=== PATIENT | male | born 1955 | race Caucasian/White ===

== ENCOUNTER 2024-01-02 15:00 | Outpatient (RCR) | payer MEDICARE, SELFPAY ==
[2024-01-02 15:10] LABS: % Basophils 0.6 % (0-2); % Eosinophils 5.6 % (0-6); % Immature Granulocytes 0.1 % (0-0.5); % Lymphocytes 22.2 % (20.5-51.1); % Monocytes 10.8 % (1.7-9.3); % Neutrophils 60.7 % (42.2-75.2); Absolute Basophils 0.1 10^3/uL (0-0.2); Absolute Eosinophils 0.5 10^3/uL (0-0.7); Absolute Lymphocytes 2.1 10^3/uL (1.2-3.4); Absolute Neutrophils 5.7 10^3/uL (1.4-6.5); Hematocrit 45.4 % (39.0-52.0); Hemoglobin 15.9 g/dL (13.0-18.0); Mean Corpuscular Hgb 31.2 pg (27.0-31.0); Mean Platelet Volume 9.6 fL (7.4-10.4); Platelet Count 201 10^3/uL (130-400); Red Cell Dist. Width 12.7 % (11.5-14.5); White Blood Cell Count 9.5 10^3/uL (4.8-10.8)
[2024-01-02 15:19] VITALS: BP 124/76
[2024-01-02 15:47] VITALS: BP 123/86
[2024-01-02 15:53] VITALS: BP 108/74
== END 2024-01-03 11:12 | disposition home or self-care (01) ==
LOC: OID 15:00
PROVIDERS: ATTENDING PHYSICIAN Family Medicine; OTHER PHYSICIAN Dermatology
DX: E83.110 Hereditary hemochromatosis (principal)
CPT/HCPCS: 36415; 85025; 99195

== ENCOUNTER → 2024-02-14 06:28 | Day surgery (SDC) | payer MEDICARE, SELFPAY | LOC: GI 06:28 | PROVIDERS: ATTENDING PHYSICIAN Internal Medicine Gastroenterology; FAMILY PHYSICIAN Family Medicine | DX: Z12.11 Encounter for screening for malignant neoplasm of colon (principal); Z86.010 Personal history of colon polyps; K64.8 Other hemorrhoids; K57.30 Diverticulosis of large intestine without perforation or abscess without bleeding; D12.2 Benign neoplasm of ascending colon | CPT/HCPCS: 45385; 88305 ==

== ENCOUNTER 2024-03-05 14:17 | Outpatient (RCR) | payer MEDICARE, SELFPAY ==
[2024-03-05 14:27] LABS: % Basophils 0.9 % (0-2); % Eosinophils 6.7 % (0-6); % Immature Granulocytes 0.1 % (0-0.5); % Lymphocytes 19.1 % (20.5-51.1); % Monocytes 10.5 % (1.7-9.3); % Neutrophils 62.7 % (42.2-75.2); Absolute Basophils 0.1 10^3/uL (0-0.2); Absolute Eosinophils 0.5 10^3/uL (0-0.7); Absolute Lymphocytes 1.5 10^3/uL (1.2-3.4); Absolute Monocytes 0.8 10^3/uL (0.1-0.6); Absolute Neutrophils 4.8 10^3/uL (1.4-6.5); Hematocrit 43.6 % (39.0-52.0); Hemoglobin 15.2 g/dL (13.0-18.0); Mean Corp Hgb Conc. 34.9 g/dL (33.0-37.0); Mean Corpuscular Hgb 30.9 pg (27.0-31.0); Mean Corpuscular Volume 88.6 fL (80.0-94.0); Mean Platelet Volume 9.7 fL (7.4-10.4); Platelet Count 173 10^3/uL (130-400); Red Blood Cell Count 4.92 10^6/uL (4.70-6.10); White Blood Cell Count 7.7 10^3/uL (4.8-10.8)
[2024-03-05 14:47] VITALS: BP 152/83
[2024-03-05 14:55] VITALS: BP 151/85
[2024-03-05 15:00] VITALS: BP 136/87
== END 2024-03-06 10:03 | disposition home or self-care (01) ==
LOC: OID 14:17
PROVIDERS: ATTENDING PHYSICIAN Family Medicine; OTHER PHYSICIAN Dermatology
DX: E83.110 Hereditary hemochromatosis (principal); R74.8 Abnormal levels of other serum enzymes; I10 Essential (primary) hypertension; E11.9 Type 2 diabetes mellitus without complications; Z12.5 Encounter for screening for malignant neoplasm of prostate
CPT/HCPCS: 36415; 85025; 99195

== ENCOUNTER 2024-04-30 15:00 | Outpatient (RCR) | payer MEDICARE, SELFPAY ==
[2024-04-30 15:08] LABS: % Basophils 0.6 % (0-2); % Eosinophils 3.7 % (0-6); % Immature Granulocytes 0.1 % (0-0.5); % Lymphocytes 19.5 % (20.5-51.1); % Monocytes 9.5 % (1.7-9.3); % Neutrophils 66.6 % (42.2-75.2); Absolute Basophils 0.1 10^3/uL (0-0.2); Absolute Eosinophils 0.3 10^3/uL (0-0.7); Absolute Lymphocytes 1.7 10^3/uL (1.2-3.4); Absolute Monocytes 0.8 10^3/uL (0.1-0.6); Absolute Neutrophils 5.9 10^3/uL (1.4-6.5); Hematocrit 44.8 % (39.0-52.0); Hemoglobin 15.6 g/dL (13.0-18.0); Mean Corp Hgb Conc. 34.8 g/dL (33.0-37.0); Mean Corpuscular Hgb 30.8 pg (27.0-31.0); Mean Corpuscular Volume 88.4 fL (80.0-94.0); Mean Platelet Volume 9.3 fL (7.4-10.4); Platelet Count 207 10^3/uL (130-400); Red Blood Cell Count 5.07 10^6/uL (4.70-6.10); Red Cell Dist. Width 13.4 % (11.5-14.5); White Blood Cell Count 8.8 10^3/uL (4.8-10.8)
[2024-04-30 15:29] VITALS: BP 133/70
[2024-04-30 16:14] VITALS: BP 119/71
[2024-04-30 16:17] VITALS: BP 108/73
== END 2024-05-01 09:27 | disposition home or self-care (01) ==
LOC: OID 15:00
PROVIDERS: ATTENDING PHYSICIAN Family Medicine; OTHER PHYSICIAN Dermatology
DX: E83.110 Hereditary hemochromatosis (principal); R74.8 Abnormal levels of other serum enzymes
CPT/HCPCS: 36415; 85025; 99195

== ENCOUNTER 2024-06-25 14:59 | Outpatient (RCR) | payer MEDICARE, SELFPAY ==
[2024-06-24 15:12] LABS: Hematocrit 45.3 % (39.0-52.0)
[2024-06-24 15:55] LABS: Iron 73 ug/dl (49-181)
[2024-06-24 16:05] LABS: Percent Saturation 21 % (20-50); Total Iron Binding Capacity 339 ug/dl (261-462)
[2024-06-24 16:53] LABS: Ferritin 13.5 ng/ml (17.9-464.0)
[2024-06-25 15:15] VITALS: BP 126/73
[2024-06-25 15:47] VITALS: BP 138/66
[2024-06-25 15:52] VITALS: BP 138/66
== END 2024-06-26 08:45 | disposition home or self-care (01) ==
LOC: OID 14:59
PROVIDERS: ATTENDING PHYSICIAN Family Medicine; OTHER PHYSICIAN Dermatology
DX: E83.110 Hereditary hemochromatosis (principal); R74.8 Abnormal levels of other serum enzymes; I10 Essential (primary) hypertension; E11.9 Type 2 diabetes mellitus without complications; Z12.5 Encounter for screening for malignant neoplasm of prostate
CPT/HCPCS: 36415; 82728; 83540; 83550; 85014; 85018; 99195

== ENCOUNTER 2024-08-17 14:30 | Outpatient (RCR) | payer MEDICARE, SELFPAY ==
[2024-08-17 14:45] VITALS: BP 105/82
[2024-08-17 15:03] LABS: Hematocrit 43.4 % (39.0-52.0); Hemoglobin 15.4 g/dL (13.0-18.0)
[2024-08-17 15:16] LABS: Iron 72 ug/dl (49-181)
[2024-08-17 15:21] VITALS: BP 146/78
[2024-08-17 15:26] LABS: Percent Saturation 21 % (20-50); Total Iron Binding Capacity 336 ug/dl (261-462)
[2024-08-17 15:29] VITALS: BP 135/80
[2024-08-17 15:53] LABS: Ferritin 13.9 ng/ml (17.9-464.0)
== END 2024-08-31 23:59 | disposition home or self-care (01) ==
LOC: OID 14:30
PROVIDERS: ATTENDING PHYSICIAN Family Medicine; OTHER PHYSICIAN Dermatology
DX: E83.110 Hereditary hemochromatosis (principal); R74.8 Abnormal levels of other serum enzymes; I10 Essential (primary) hypertension; E11.9 Type 2 diabetes mellitus without complications; Z12.5 Encounter for screening for malignant neoplasm of prostate
CPT/HCPCS: 82728; 83540; 83550; 85014; 85018; 99195

== ENCOUNTER 2024-10-27 14:28 | Outpatient (RCR) | payer MEDICARE, SELFPAY ==
[2024-10-27 14:44] LABS: Hematocrit 46.9 % (39.0-52.0); Hemoglobin 16.3 g/dL (13.0-18.0)
[2024-10-27 14:58] VITALS: BP 155/85
[2024-10-27 15:09] VITALS: BP 158/86
[2024-10-27 15:15] VITALS: BP 156/86
[2024-10-27 15:23] VITALS: BP 141/81
[2024-10-27 15:41] LABS: Iron 98 ug/dl (49-181)
[2024-10-27 15:50] LABS: Percent Saturation 28 % (20-50); Total Iron Binding Capacity 349 ug/dl (261-462)
[2024-10-27 16:17] LABS: Ferritin 20.6 ng/ml (17.9-464.0)
== END 2024-10-28 10:01 | disposition home or self-care (01) ==
LOC: OID 14:28
PROVIDERS: ATTENDING PHYSICIAN Family Medicine; OTHER PHYSICIAN Dermatology
DX: E83.110 Hereditary hemochromatosis (principal); R74.8 Abnormal levels of other serum enzymes; I10 Essential (primary) hypertension; E11.9 Type 2 diabetes mellitus without complications; Z12.5 Encounter for screening for malignant neoplasm of prostate
CPT/HCPCS: 36415; 82728; 83540; 83550; 85014; 85018; 99195

== ENCOUNTER 2024-12-22 14:15 | Outpatient (RCR) | payer MEDICARE, SELFPAY ==
[2024-12-22 14:35] VITALS: BP 128/71
[2024-12-22 15:07] VITALS: BP 115/74
[2024-12-22 15:12] VITALS: BP 106/73
[2024-12-22 15:21] VITALS: BP 124/79
[2024-12-22 15:26] LABS: Iron 172 ug/dl (49-181)
[2024-12-22 15:35] LABS: Percent Saturation 51 % (20-50); Total Iron Binding Capacity 332 ug/dl (261-462)
[2024-12-22 16:02] LABS: Ferritin 18.3 ng/ml (17.9-464.0)
== END 2024-12-23 10:33 | disposition home or self-care (01) ==
LOC: OID 14:15
PROVIDERS: ATTENDING PHYSICIAN Family Medicine; OTHER PHYSICIAN Dermatology
DX: E83.110 Hereditary hemochromatosis (principal); R74.8 Abnormal levels of other serum enzymes; I10 Essential (primary) hypertension; E11.9 Type 2 diabetes mellitus without complications; Z12.5 Encounter for screening for malignant neoplasm of prostate
CPT/HCPCS: 36415; 82728; 83540; 83550; 85014; 85018; 99195

== ENCOUNTER 2025-03-02 14:03 | Outpatient (RCR) | payer MEDICARE, SELFPAY ==
[2025-03-02 14:47] LABS: Hematocrit 44.6 % (39.0-52.0); Hemoglobin 15.5 g/dL (13.0-18.0)
[2025-03-02 14:50] VITALS: BP 147/78
[2025-03-02 15:14] VITALS: BP 111/72
[2025-03-02 15:14] LABS: Iron 149 ug/dl (49-181)
[2025-03-02 15:16] VITALS: BP 114/72
[2025-03-02 15:23] LABS: Percent Saturation 45 % (20-50); Total Iron Binding Capacity 325 ug/dl (261-462)
[2025-03-02 15:49] LABS: Ferritin 13.1 ng/ml (17.9-464.0)
== END 2025-03-31 23:59 | disposition home or self-care (01) ==
LOC: OID 14:03
PROVIDERS: ATTENDING PHYSICIAN Family Medicine; FAMILY PHYSICIAN Nurse Practitioner Family; OTHER PHYSICIAN Dermatology
DX: E83.110 Hereditary hemochromatosis (principal); R74.8 Abnormal levels of other serum enzymes; I10 Essential (primary) hypertension; E11.9 Type 2 diabetes mellitus without complications; Z12.5 Encounter for screening for malignant neoplasm of prostate
CPT/HCPCS: 36415; 82728; 83540; 83550; 85014; 85018; 99195

== ENCOUNTER 2025-04-29 14:13 | Outpatient (RCR) | payer MEDICARE, SELFPAY ==
[2025-04-29 14:24] LABS: Hematocrit 44.2 % (39.0-52.0); Hemoglobin 15.6 g/dL (13.0-18.0)
[2025-04-29 14:39] VITALS: BP 141/72
[2025-04-29 15:16] VITALS: BP 116/72
[2025-04-29 15:30] VITALS: BP 118/76
[2025-04-29 16:17] LABS: Iron 124 ug/dl (49-181)
[2025-04-29 16:26] LABS: Percent Saturation 38 % (20-50); Total Iron Binding Capacity 320 ug/dl (261-462)
[2025-04-29 16:51] LABS: Ferritin 25.9 ng/ml (17.9-464.0)
== END 2025-04-30 08:27 | disposition home or self-care (01) ==
LOC: OID 14:13
PROVIDERS: ATTENDING PHYSICIAN Family Medicine; FAMILY PHYSICIAN Nurse Practitioner Family; OTHER PHYSICIAN Dermatology
DX: E83.110 Hereditary hemochromatosis (principal); R74.8 Abnormal levels of other serum enzymes; I10 Essential (primary) hypertension; E11.9 Type 2 diabetes mellitus without complications; Z12.5 Encounter for screening for malignant neoplasm of prostate
CPT/HCPCS: 36415; 82728; 83540; 83550; 85014; 85018; 99195

== ENCOUNTER 2025-07-08 14:11 | Outpatient (RCR) | payer MEDICARE, SELFPAY ==
[2025-07-08 14:24] LABS: Hematocrit 45.4 % (39.0-52.0); Hemoglobin 16.0 g/dL (13.0-18.0)
[2025-07-08 14:40] VITALS: BP 129/86
[2025-07-08 15:05] VITALS: BP 110/85
[2025-07-08 15:10] VITALS: BP 125/77
[2025-07-08 16:08] LABS: Iron 148 ug/dl (49-181)
[2025-07-08 16:17] LABS: Total Iron Binding Capacity 345 ug/dl (261-462)
[2025-07-08 16:43] LABS: Ferritin 18.5 ng/ml (17.9-464.0)
== END 2025-08-01 23:59 | disposition home or self-care (01) ==
LOC: OID 14:11
PROVIDERS: ATTENDING PHYSICIAN Family Medicine; FAMILY PHYSICIAN Nurse Practitioner Family; OTHER PHYSICIAN Dermatology
DX: E83.110 Hereditary hemochromatosis (principal); R74.8 Abnormal levels of other serum enzymes; I10 Essential (primary) hypertension; E11.9 Type 2 diabetes mellitus without complications; Z12.5 Encounter for screening for malignant neoplasm of prostate
CPT/HCPCS: 36415; 82728; 83540; 83550; 85014; 85018; 99195

== ENCOUNTER 2025-09-02 14:16 | Outpatient (RCR) | payer MEDICARE, SELFPAY ==
[2025-09-02 14:23] LABS: Hematocrit 45.4 % (39.0-52.0); Hemoglobin 15.8 g/dL (13.0-18.0); Mean Corp Hgb Conc. 34.8 g/dL (33.0-37.0); Mean Corpuscular Volume 89.9 fL (80.0-94.0); Platelet Count 207 10^3/uL (130-400); Red Cell Dist. Width 12.9 % (11.5-14.5)
[2025-09-02 14:35] VITALS: BP 128/77
[2025-09-02 15:10] VITALS: BP 115/85
[2025-09-02 15:15] VITALS: BP 120/80
== END 2025-10-01 23:59 | disposition home or self-care (01) ==
LOC: OID 14:16
PROVIDERS: ATTENDING PHYSICIAN Internal Medicine; FAMILY PHYSICIAN Nurse Practitioner Family; OTHER PHYSICIAN Dermatology
DX: E83.110 Hereditary hemochromatosis (principal); R74.8 Abnormal levels of other serum enzymes; I10 Essential (primary) hypertension; E11.9 Type 2 diabetes mellitus without complications
CPT/HCPCS: 36415; 85025; 99195

== ENCOUNTER 2025-11-04 14:15 | Outpatient (RCR) | payer MEDICARE, SELFPAY ==
[2025-11-04 14:24] LABS: Hematocrit 49.4 % (39.0-52.0); Hemoglobin 16.9 g/dL (13.0-18.0)
[2025-11-04 14:58] VITALS: BP 140/82
[2025-11-04 15:10] VITALS: BP 144/75
[2025-11-04 15:15] VITALS: BP 155/99
[2025-11-04 15:20] LABS: Iron 148 ug/dl (49-181)
[2025-11-04 15:30] LABS: Total Iron Binding Capacity 374 ug/dl (261-462)
[2025-11-04 15:57] LABS: Ferritin 24.1 ng/ml (17.9-464.0)
== END 2025-11-05 11:46 | disposition home or self-care (01) ==
LOC: OID 14:15
PROVIDERS: ATTENDING PHYSICIAN Internal Medicine; FAMILY PHYSICIAN Nurse Practitioner Family; OTHER PHYSICIAN Dermatology
DX: E83.110 Hereditary hemochromatosis (principal); R74.8 Abnormal levels of other serum enzymes; I10 Essential (primary) hypertension; E11.9 Type 2 diabetes mellitus without complications
CPT/HCPCS: 36415; 82728; 83540; 83550; 85014; 85018; 99195